=== PATIENT | male | born 1965 | race African-American/Black ===

== ENCOUNTER 2024-03-15 15:06 | Inpatient (IN) | payer OTHER ==
[~2024-03-15] VITALS: Ht 172.7 cm; Wt 125.2 kg
[2024-03-15 16:30] LABS: BASOPHILS % 0.9 % (0.0-2.0); EOSINOPHILS % 0.7 % (0.0-5.0); HEMATOCRIT. 49.2 % (42.0-52.0); HEMOGLOBIN. 15.5 g/dL (14.0-18.0); LYMPHOCYTES % 32.7 % (20.0-50.0); MEAN CORPUSCULAR HEMOGLOBIN 28.9 pg (28.0-32.0); MEAN CORPUSCULAR HGB CONC 31.5 g/dL (31.0-37.0); MEAN CORPUSCULAR VOLUME 91.7 fL (80.0-94.0); MEAN PLATELET VOLUME 8.7 fl (7.4-10.4); MONOCYTES % 11.1 % (2.0-8.0); NEUTROPHILS % 54.6 % (40.0-76.0); PLATELET 202 x1000/uL (130-400); RED BLOOD CELL COUNT 5.37 mill/uL (4.7-6.1); RED CELL DISTRIBUTION WIDTH 14.2 % (11.6-14.6); WHITE BLOOD COUNT 4.7 x1000/uL (4.5-11.0)
[2024-03-15 16:32] LABS: CHLORIDE 110 mEq/L (98-107); POTASSIUM 4.1 mEq/L (3.5-5.1); SODIUM 139 mEq/L (136-145)
[2024-03-15 16:33] LABS: CARBON DIOXIDE 22 mEq/L (21-32)
[2024-03-15 16:34] LABS: CALCIUM 9.3 mg/dL (8.7-10.4)
[2024-03-15 16:35] LABS: CLARITY URINE CLOUDY (CLEAR); COLOR URINE DARK YELLOW (YELLOW); GLUCOSE URINE 3+ (NEGATIVE); KETONES URINE TRACE (NEGATIVE); LEUKOCYTE ESTERASE URINE NEGATIVE (NEGATIVE); NITRITE URINE NEGATIVE (NEGATIVE); OCCULT BLOOD URINE TRACE (NEGATIVE); PH URINE 5.5 (4.5-8.0); PROTEIN URINE 2+ (NEGATIVE); SPECIFIC GRAVITY URINE 1.033 (1.005-1.030)
[2024-03-15 16:39] LABS: GLUCOSE 174 mg/dL (70-105); UREA NITROGEN BLOOD 19 mg/dL (9-23)
[2024-03-15 16:40] LABS: TROPONIN I HIGH SENSITIVITY 9 ng/L (3.0-53)
[2024-03-15] MEDS: SODIUM CHLORIDE 0.9% 1000ML BAG (SEPSIS BOLUS) IV ONE (16:46)
[2024-03-15 17:19] LABS: BACTERIA URINE 2+; RBC URINE 0-2 /hpf (0-2); SQUAMOUS EPITHELIAL CELL URINE 1+ /lpf (RARE/1+); WBC URINE 0-2 /hpf (0-2)
[2024-03-15 17:20] LABS: HYALINE CASTS URINE 0-5 /lpf
[2024-03-15] MEDS: ASPIRIN 325MG EC TABLET PO ONE (17:36)
[2024-03-15 21:21] VITALS: BP 133/87; PULSE 63; RESP 20; TEMP 36.44736
[2024-03-15] MEDS ORDERED: ACETAMINOPHEN 325MG TABLET PO PRN ×2 (21:30)
[2024-03-15] MEDS ORDERED: DOCUSATE SODIUM 100MG CAPSULE PO PRN (21:30)
[2024-03-15] MEDS ORDERED: GUAIFENESIN 200MG/10ML SUGAR FREE UDC PO PRN (21:30)
[2024-03-15] MEDS ORDERED: MAGNESIUM/ALUMINUM HYDROXIDE/SIMETHICONE 30ML UDC PO PRN (21:30)
[2024-03-15] MEDS ORDERED: CLONIDINE 0.1MG TABLET PO PRN (21:30)
[2024-03-15] MEDS ORDERED: IPRATROPIUM/ALBUTEROL 0.5-3(2.5)MG/3ML NEB HHN PRN (21:30)
[2024-03-15] MEDS ORDERED: ONDANSETRON HCL 4MG/2ML INJ IV PRN (21:30)
[2024-03-15] MEDS ORDERED: DEXTROSE 50% WATER 50ML SYRINGE IV PRN (21:45)
[2024-03-15] MEDS ORDERED: METF-415 PO (21:54)
[2024-03-15] MEDS ORDERED: SACU1TAB4 PO (21:54)
[2024-03-15] MEDS ORDERED: ATOR20TA65 PO (21:54)
[2024-03-15] MEDS ORDERED: CARV25TA47 PO (21:54)
[2024-03-15] MEDS ORDERED: SPIR50TA5 PO (21:54)
[2024-03-15] MEDS ORDERED: EMPA25TA PO (21:54)
[2024-03-15] MEDS ORDERED: WARF-53 PO (21:54)
[2024-03-15 22:03] VITALS: BP 133/87; PULSE 63; RESP 20; TEMP 36.4736
[2024-03-15 23:05] LABS: PROTHROMBIN TIME 21.6 sec (9.6-11.0)
[2024-03-16] VITALS: BP 110/69; PULSE 87; RESP 18; TEMP 36.33624; O2SAT 100
[2024-03-16 01:25] LABS: TROPONIN I HIGH SENSITIVITY 9 ng/L (3.0-53)
[2024-03-16] MEDS: BLOOD SUGAR DIAGNOSTIC STRIP TEST SCH (06:30)
[2024-03-16 06:33] LABS: CALCIUM 8.9 mg/dL (8.7-10.4); CHLORIDE 112 mEq/L (98-107); POTASSIUM 3.8 mEq/L (3.5-5.1); SODIUM 141 mEq/L (136-145)
[2024-03-16 06:34] LABS: CARBON DIOXIDE 20 mEq/L (21-32)
[2024-03-16 06:39] LABS: CREATININE 1.4 mg/dL (0.6-1.3); GLUCOSE 89 mg/dL (70-105); TRIGLYCERIDE 154 mg/dL (0-150); UREA NITROGEN BLOOD 18 mg/dL (9-23)
[2024-03-16 06:40] LABS: LDL CHOLESTEROL 49 mg/dL (5-100)
[2024-03-16 06:41] LABS: CHOLESTEROL 114 mg/dL (<200); HDL CHOLESTEROL 44 mg/dL (>55); THYROID STIMULATING HORMONE 0.97 uIU/mL (0.55-4.78)
[2024-03-16 06:55] LABS: BASOPHILS % 0.5 % (0.0-2.0); HEMATOCRIT. 41.4 % (42.0-52.0); HEMOGLOBIN. 13.4 g/dL (14.0-18.0); LYMPHOCYTES % 39.5 % (20.0-50.0); MEAN CORPUSCULAR HEMOGLOBIN 29.5 pg (28.0-32.0); MEAN CORPUSCULAR HGB CONC 32.4 g/dL (31.0-37.0); MEAN CORPUSCULAR VOLUME 90.9 fL (80.0-94.0); MEAN PLATELET VOLUME 8.9 fl (7.4-10.4); MONOCYTES % 13.1 % (2.0-8.0); NEUTROPHILS % 45.9 % (40.0-76.0); PLATELET 167 x1000/uL (130-400); RED BLOOD CELL COUNT 4.56 mill/uL (4.7-6.1); RED CELL DISTRIBUTION WIDTH 14.1 % (11.6-14.6); WHITE BLOOD COUNT 4.5 x1000/uL (4.5-11.0)
[2024-03-16 07:04] LABS: INR 2.1; PROTHROMBIN TIME 22.1 sec (9.6-11.0)
[2024-03-16] MEDS: INSULIN LISPRO 100 UNITS/ML SUBCUT SCH (07:40)
[2024-03-16 08:00] VITALS: BP 135/90; PULSE 86; TEMP 98.5; O2SAT 100
[2024-03-16] MEDS ORDERED: WARFARIN SODIUM 5MG TABLET PO SCH (09:00)
[2024-03-16 10:34] LABS: INR 2.1
[2024-03-16] MEDS: SPIRONOLACTONE 12.5MG TABLET PO SCH (10:48)
[2024-03-16] MEDS: ATORVASTATIN CALCIUM 20MG TABLET PO SCH (10:48)
[2024-03-16] MEDS: ASPIRIN 81MG TABLET PO SCH (10:48)
[2024-03-16 16:00] VITALS: BP 122/75; PULSE 72; RESP 18; TEMP 36.61404; O2SAT 98
[2024-03-16] MEDS ORDERED: WARFARIN SODIUM 5MG TABLET PO NR (18:00)
== END 2024-03-16 13:44 | disposition home or self-care (01) | DRG 74 ==
LOC: ER 15:06 → 5WST 18:53 → EDBEDREQTM 18:56 → EDBEDREQ 18:56 → 8WST 20:49
PROVIDERS: ADMIT Internal Medicine; ATTEND Internal Medicine
DX: G90.8 Other disorders of autonomic nervous system (principal); I13.0 Hypertensive heart and chronic kidney disease with heart failure and stage 1 through stage 4 chronic kidney disease, or unspecified chronic kidney disease; I50.42 Chronic combined systolic (congestive) and diastolic (congestive) heart failure; N17.9 Acute kidney failure, unspecified; I95.1 Orthostatic hypotension; E86.0 Dehydration; E11.22 Type 2 diabetes mellitus with diabetic chronic kidney disease; N18.9 Chronic kidney disease, unspecified; Z79.01 Long term (current) use of anticoagulants; Z79.84 Long term (current) use of oral hypoglycemic drugs; Z79.899 Other long term (current) drug therapy; Z86.73 Personal history of transient ischemic attack (TIA), and cerebral infarction without residual deficits
CPT/HCPCS: 36415; 71045; 80048; 80061; 81003; 82962; 83036; 83605; 83880; 84443; 84484; 85025; 85379; 93005; 99285; J7030